=== PATIENT | female | born 1935 | race African-American/Black ===

== ENCOUNTER → 2020-10-06 17:19 | Outpatient (CLI) | payer MEDICARE ==
[2020-10-06 17:49] LABS: BASOPHILS 0.8 % (0-2); EOSINOPHILS 10.6 % (0-7); HEMATOCRIT 31.7 % (36.0-48.0); LYMPHOCYTES 19.5 % (15-50); MCH 28.6 pg (26.0-34.0); MCHC 31.5 g/dL (31.0-37.0); MCV 90.9 fL (80.0-100.0); MEAN PLATELET VOLUME 10.5 fL (7.4-10.4); MONOCYTES 9.3 % (2-11); NEUTROPHILS 59.8 % (40-80); PLATELET COUNT 198 10x3/uL (130-400); RBC 3.49 10x6/uL (4.00-5.40); RDW 16.9 % (11.5-14.5); WBC 6.3 10x3/uL (4.8-10.8)
== END | disposition home or self-care (01) ==
LOC: D.LABREF 17:19
PROVIDERS: ATTEND Family Medicine
DX: Z51.81 Encounter for therapeutic drug level monitoring (principal)

== ENCOUNTER → 2020-10-07 20:29 | Outpatient (CLI) | payer MEDICARE ==
[2020-10-07 21:00] LABS: RDW 16.4 % (11.5-14.5)
[2020-10-07 21:02] LABS: HEMATOCRIT 36.2 % (36.0-48.0); HEMOGLOBIN 11.8 g/dL (12-16); MCH 31.1 pg (26.0-34.0); MCHC 32.5 g/dL (31.0-37.0); MEAN PLATELET VOLUME 9.1 fL (7.4-10.4); RBC 3.78 10x6/uL (4.00-5.40)
[2020-10-07 21:06] LABS: MCV 95.7 fL (80.0-100.0); WBC 11.6 10x3/uL (4.8-10.8)
[2020-10-07 21:07] LABS: PLATELET COUNT 73 10x3/uL (130-400)
[2020-10-07 21:31] LABS: EOSINOPHILS 4 % (0-7); LYMPHOCYTES 17 % (15-50); MONOCYTES 1 % (2-11); NEUTROPHILS 77 % (40-80)
[2020-10-07 21:32] LABS: PLATELET ESTIMATE DECREASED; PLATELET MORPHOLOGY PLT CLUMPS PRESENT
[2020-10-07 21:33] LABS: ALBUMIN 3.3 g/dL (3.4-5.0); ANION GAP 12.1 mmol/L (8-16); BILIRUBIN - TOTAL 0.7 mg/dL (0.2-1.3); CALCIUM 9.5 mg/dL (8.5-10.1); CARBON DIOXIDE 32.1 mmol/L (21.0-32.0); CREATININE - SERUM 0.8 mg/dL (0.6-1.3); LDL-HDL RATIO 0.9 ratio (1.5-3.5); PROTEIN - SERUM 6.6 g/dL (6.4-8.2)
[2020-10-07 21:42] LABS: POTASSIUM - SERUM 7.2 mmol/L (3.5-5.1)
== END | disposition home or self-care (01) ==
LOC: D.LABREF 20:29
PROVIDERS: ATTEND Family Medicine
DX: Z51.81 Encounter for therapeutic drug level monitoring (principal)

== ENCOUNTER → 2020-11-07 12:03 | Outpatient (CLI) | payer MEDICARE ==
[2020-11-07 13:53] LABS: HEMATOCRIT 32.1 % (36.0-48.0); HEMOGLOBIN 10.3 g/dL (12-16); LYMPHOCYTES 22.9 % (15-50); MCH 29.8 pg (26.0-34.0); MCV 93.1 fL (80.0-100.0); MEAN PLATELET VOLUME 10.8 fL (7.4-10.4); MONOCYTES 9.1 % (2-11); RBC 3.44 10x6/uL (4.00-5.40); RDW 15.2 % (11.5-14.5); WBC 6.9 10x3/uL (4.8-10.8)
[2020-11-07 13:55] LABS: PLATELET COUNT 205 10x3/uL (130-400)
[2020-11-07 14:08] LABS: ALBUMIN 3.1 g/dL (3.4-5.0); BILIRUBIN - TOTAL 0.64 mg/dL (0.2-1.3); CALCIUM 9.8 mg/dL (8.5-10.1); CARBON DIOXIDE 32.1 mmol/L (21.0-32.0); CREATININE - SERUM 0.9 mg/dL (0.6-1.3); POTASSIUM - SERUM 4.1 mmol/L (3.5-5.1); PROTEIN - SERUM 6.4 g/dL (6.4-8.2)
== END | disposition home or self-care (01) ==
LOC: D.LABREF 12:03
PROVIDERS: ATTEND Family Medicine
DX: I10 Essential (primary) hypertension (principal)